=== PATIENT | female | born 1995 | race African-American/Black ===

== ENCOUNTER 2025-04-18 12:07 | Outpatient (REF) | payer MEDICAID, SELFPAY ==
--- NOTE | ~2025-04-18 | XR_ITS ---
EXAMINATION: XR HIP, RIGHT CLINICAL INFORMATION: Acute right hip pain COMPARISON: None available. TECHNIQUE: Two views of the right hip. FINDINGS: Right hip joint is congruent without narrowing. Lateral Center edge angle measures 41 degrees which is increased. No other abnormality is evident. XR/XR hip RT min 2V IMPRESSION: Coxa profunda. Electronically signed by: Dany Ortega MD 04/18/2025 12:40 PM EDT
[2025-04-18 16:12] LABS: MANUAL DIFF FLAG NO
[2025-04-18 16:24] LABS: Hematocrit 35.6 % (37.0-47.0); Hemoglobin 11.7 g/dl (12.0-16.0); Imm Gran Abs Auto 0.02 X10*3/uL (0.00-0.03); Imm Gran Pct Auto 0.3 % (0.0-0.4); Lymphocytes Absolute Auto 2.3 X10*3/uL (1.2-4.9); Mean Corpuscular HGB Conc 32.9 g/dl (31.0-35.0); Mean Corpuscular Hemoglobin 26.7 pg (27.0-33.0); Mean Corpuscular Volume 81.1 fL (80.0-98.0); NRBC Abs Auto 0.000 X10*3/uL (0.0-0.012); NRBC Pct Auto 0.0 /100WBC (0.0-0.2); Platelet Count 366 X10*3/uL (160-400); Red Blood Count 4.39 X10*6/uL (4.20-5.50); White Blood Count 8.0 X10*3/uL (4.8-10.8)
[2025-04-18 16:36] LABS: Anion Gap 10 (12-20); Blood Urea Nitrogen 15 mg/dL (9-16); Calcium 8.9 mg/dL (8.4-10.2); Carbon Dioxide 24 mmol/L (22-29); Chloride 108 mmol/L (96-108); Estimated Glomerular Filt Rate > 60; Potassium 4.2 mmol/L (3.3-5.1); Sodium 138 mmol/L (135-145)
[2025-04-24 11:49] LABS: Anti Nuclear Antibody Screen NEGATIVE (NEGATIVE)
== END 2025-04-18 12:08 | disposition home or self-care (01) ==
LOC: HO.HHCX 12:07
PROVIDERS: Visit Provider Internal Medicine
DX: Z01.84 Encounter for antibody response examination (principal); M25.551 Pain in right hip
CPT/HCPCS: 36415; 73502; 80048; 85025; 86038

== ENCOUNTER → 2025-04-18 12:10 | Outpatient (BNV) | payer MEDICAID, SELFPAY | PROVIDERS: Visit Provider Radiology Diagnostic Radiology | DX: M24.851 Other specific joint derangements of right hip, not elsewhere classified (principal) | CPT/HCPCS: 73502 ==

== ENCOUNTER 2025-04-18 13:03 | Outpatient (REF) | payer MEDICAID, SELFPAY | END 2025-04-18 13:04 | disposition home or self-care (01) | LOC: HO.HHCL 13:03 | PROVIDERS: Visit Provider Internal Medicine | DX: Z13.89 Encounter for screening for other disorder (principal) ==

== ENCOUNTER 2025-04-27 18:04 | Outpatient (REF) | payer MEDICAID, SELFPAY ==
--- OUTSIDE RECORDS SUMMARY | 2025-04-27 18:06 | XMS_ITS | Clinical Summary ---
Author Organization [email or web address] Address [address] [place] [address] [address] [address] Care Team Providers Care Tub Attendant Name Role Phone Unavailable Primary Care Provider Unavailabl e Allergies No known active allergies Medications ibuprofen 800 MG tabletIndications: Menstrual cramps Take 1 tab as needed for pain up to every 8 hours, take with food 90 tablet Active etonogestrel-eluti ng (Nexplanon) 68 mg contraceptive implant 1 each by Implant route 1 (one) time. 03/08/2025 Active Active Problems Problem Noted Date Diagnosed Date Femoroacetabular impingement of right hip 2024 Severe obesity (BMI >= 40) 04/18/2025 Menstrual cramps 02/27/2025 Encounters Date Type Department Care Team Description 04/27/2025 10:30 AM EDT Procedure Visit [facility] [address] [place] [phone] Montserrat Montoya CNM Cervical cancer screening (Primary Dx); Encntr screen for infections w sexl mode of transmiss; Checking subdermal contraceptive 04/27/2025 Travel 04/26/2025 Telephone [facility] [address], [place] [phone] Montserrat Montoya CNM chart prep 04/21/2025 Orders Only [facility] [address] [place], [place] [phone] Tracy Franco MD Anemia, unspecified type (Primary Dx) 04/20/2025 Telephone [facility] [address], [place] [phone] Tracy Franco MD 04/19/2025 Results Follow-Up [facility] [address] [place] [address] Tracy Franco MD CBC auto differential, Basic Metabolic Panel, XR Hip 2 or 3 Views Right, ROCK Screen,IFA, with Reflex to Titer and Pattern 04/18/2025 11:00 AM EDT Office Visit [facility] [address] [place] [phone] Tracy Franco MD Acute right hip pain (Primary Dx); Severe obesity (BMI >= 40) ([facility]); Femoroacetabular impingement of right hip 04/18/2025 Travel 04/12/[address] [address] Erich Wilson CNP Procedure (Pt requesting to speak apon Erich lynne did the procedure. ) 04/07/[address] [address] Montserrat Montoya, CAMILO Chart Prep 03/27/[address] [address] Holland Che MD 03/08/2025 9:00 AM EDT Procedure Visit [address] [address] Erich Wilson CNP Nexplanon insertion (Primary Dx) 03/08/2025 Travel 02/27/2025 1:20 PM EDT Office Visit [facility] [address] [address] Elysia Decker ANP Menstrual cramps (Primary Dx); Family planning; Elevated blood pressure reading without diagnosis of hypertension 02/27/2025 Telephone [facility] [address] [phone] Erich Wilson CNP APPT request 02/27/[address] [address] Holland Che MD from Last 3 Months Social History Tobacco Use Types Packs/Day Years Used Date Smoking Tobacco: Never Smokeless Tobacco: Never Tobacco Cessation:Counseling Given: Not Answered Depression Answer Date Recorded Patient Health Questionnaire-9 Score 7 03/08/2025 Patient Health Questionnaire-9 Score 7 03/08/2025 Last PHQ-9: Questionnaire Data Not on file 0 03/08/2025 Housing Stability Answer Date Recorded What is your housing situation today? I have ranjan child 03/09/[address] you li ve. Do you have problems with any of the following? None of the above 03/09/2025 Food Insecurity Answer Date Recorded Within the past 12 months, y ou worried that your food would run out before you got money to buy more: Never True 2024 Within the past 12 months,th e food you bought just didn't last and you didn't have enough money to get more: Sometimes True 03/09/2025 Transportation Answer Date Recorded In the past 12 months, has l ack of transportation kept you from medical appts, meetings, work or from getting things needed for daily living? No 03/09/2025 Utilities Answer Date Recorded In the past 12 months, has t he electric, gas, oil or water company threatened to shut off services in your home? Yes 03/09/2025 Depression Answer Date Recorded Patient Health Questionnaire-2 Score 3 03/08/2025 Internet Access Answer Date Recorded Internet Access Q1 Yes 03/09/2025 Internet Access Q2 Not on file 03/09/2025 Comments No Intention Date Recorded No desire to become (finding) 0 04/27/2025 Sex and Gender Information Value Date Recorded Sex Assigned at Female 02/01/2025 1:12 PM EDT Legal Sex Female 3:24 PM EDT Gender Identity Female 02/01/2025 1:12 PM EDT Sexual Orientation Straight 02/01/2025 1: 12 PM EDT Last Filed Vital Signs Vital Sign Reading Time Taken Comments Blood Pressure 114/69 04/27/2025 10:38 AM EDT Pulse 98 04/27/2025 10:38 AM EDT Temperature 36.8 C (98.3 F) 04/27/2025 10:38 AM EDT Respiratory Rate 12 04/27/2025 10:38 AM EDT Oxygen Saturation 99% 04/27/2025 10:38 AM EDT Inhaled Oxygen Concentration - - Weight 101 kg (222 lb 9.6 oz) 04/27/2025 10:38 A M EDT Height 157.5 cm (5' 2 ) 04/18/2025 11:04 AM EDT Body Mass Index 40.71 04/18/2025 11:04 AM EDT Plan of Treatment Health Maintenance Due Date Last Done Comments HIV Screening 1994 Lipid Panel 1994 Disability Screening 1994 HPV Vaccines (1 - 3-dose series) 2009 Hepatitis C Screening 2012 DTaP/Tdap/Td Vaccines (1 - Tdap) 2013 Hepatitis B Vaccines (1 of 3 - 19+ 3-dose series) 2013 Pap Smear 2015 COVID-19 Vaccine ( - 2023-2 5 season) 2024 Cervical Cancer Screening 2024 HPV/Cotest 2024 Influenza Vaccine (#1) 2025 Alcohol/Substance Use Screening 03/08/2026 03/08/2025 Depression Screening 03/08/2026 03/08/2025, 03/08/2025 SDOH Screening 03/08/2026 03/08/2025 Family Planning (PISQ) 04/27/2026 04/27/2025 Tobacco Screening 04/27/2026 04/27/2025 Zoster Vaccines (1 of 2) 2044 RSV Patients and Patients Aged 60 years or older (1 - 1-dose 75+ series) 2069 HIB Vaccines Aged Out No longer eligi ble based on patient's age to complete this topic Hepatitis A Vaccines Aged Out No long er eligible based on patient's age to complete this topic IPV Vaccines Aged Out No longer eligi ble based on patient's age to complete this topic Meningococcal B Vaccine Aged Out No l onger eligible based on patient's age to complete this topic Meningococcal Vaccine Aged Out No jessica serjio eligible based on patient's age to complete this topic Pneumococcal Vaccine: Pediatrics (0 to 5 Years) and At-Risk Patients (6 to 49) Years Aged Out No longer eligible b ased on patient's age to complete this topic RSV under 20 months Aged Out No longe r eligible based on patient's age to complete this topic Rotavirus Vaccines Aged Out No longer eligible based on patient's age to complete this topic Procedures Procedure Name Priority Date/Time Associated Diagnosis Comments BASIC METABOLIC PANEL Routine 04/18/2025 1:20 PM EDT Acute right hip pain CBC WITH AUTO DIFFERENTIAL Routine 04/18/2025 1:20 PM EDT Acute right hip pain ROCK SCREEN, IFA, W/REFL TITER AND PATTERN Routine 04/18/2025 1:20 PM EDT Acute right hip pain XR HIP 2 OR 3 VIEWS RIGHT Routine 04/18/2025 11:35 AM EDT Acute right hip pain UT INSERTION DRUG DELIVERY IMPLANT Routine 03/08/2025 9:30 AM EDT Nexplanon insertion POCT , URINE Routine 03/08/2025 9:24 AM EDT Nexplanon insertion from Last 3 Months Results * (ABNORMAL) CBC auto differential (04/18/2025 1:20 PM EDT) White Blood Count 8.0 4.8 - 10.8 X10*3/uL [facility] Red Blood Count 4.39 4.20 - 5.50 X10*6/uL [facility] Hemoglobin 11.7(L) 12.0 - 16.0 g/dl [facility] Hematocrit 35.6(L) 37.0 - 47.0 % [facility] Mean Corpuscular Volume 81.1 80.0 - 98.0 fL [facility] Mean Corpuscular Hemoglobin 26.7(L) 27.0 - 33.0 pg [facility] Mean Corpuscular HGB Conc 32.9 31.0 - 35.0 g/dl [facility] Red Cell Distribution Width 14.8 11.0 - 16.0 % [facility] Platelet Count 366 160 - 400 X10*3/uL [facility] Mean Platelet Volume 10.0 9.4 - 12.3 fL [facility] Neutrophils Percent Auto 56.5 45 - 73 % [facility] Imm Gran Pct Auto 0.3 0.0 - 0.4 % [facility] Lymphocytes Percent Auto 28.5 20 - 40 % [facility] Monocytes Percent Auto 12.5(H) 2 - 11 % [facility] Eosinophils Percent Auto 1.4 0 - 4 % [facility] Basophils Percent Auto 0.8 0 - 2 % [facility] NRBC Pct Auto 0.0 0.0 - 0.2 /100WBC [facility] Neutrophils Absolute Auto 4.5 2.0 - 8.3 x10*3/uL [facility] Imm Gran Abs Auto 0.02 0.00 - 0.03 X10*3/uL [facility] Lymphocytes Absolute Auto 2.3 1.2 - 4.9 X10*3/uL [facility] Monocytes Absolute Auto 1.0 0.1 - 1.2 X10*3/uL [facility] Eosinophils Absolute Auto 0.1 0.0 - 0.4 X10*3/uL [facility] Basophils Absolute Auto 0.1 0.0 - 0.2 X10*3/uL [facility] NRBC Abs Auto 0.000 0.0 - 0.012 X10*3/uL [facility] Blood Venous blood specimen / Unknown 04/18/2025 1:20 PM EDT 04/18/2025 4:08 PM EDT us Tracy Franco MD LAB BLOOD ORDERABLES Final Re sult [facility] [address] [place] [phone] [phone] * ROCK Screen,IFA, with Reflex to Titer and Pattern (04/18/2025 1:20 PM EDT) Anti Nuclear Antibody Screen NEGATIVE NEGATIVE [facility] Comment:ROCK IFA is a first l ine screen for detecting thepresence of up to approximately 150 autoantibodies invarious autoimmune diseases. A negative ROCK IFA resultsuggests an ROCK-associated autoimmune disease is notpresent at this time, but is not definitive. If thereis high clinical suspicion for Sjogren's syndrome,testing for anti-SS-A/Ro antibody should be considered.Anti-Siobhan-1 antibody should be considered for clinicallysuspected inflammatory myopathies.AC-0: NegativeInternational Consensus on ROCK Patterns(https://doi.org/10.1515/aacm-9924-3962)For additional information, please refer tohttp://education.HackerEarth/faq/XSZ733(This link is being provided for informational/educational purposes only.)THIS TEST WAS PERFORMED AT:[facility] [place] [phone] SU MD ROCK Titer TNP [facility] ROCK Pattern [facility] ROCK TITER 2 (REF LAB) [facility] ROCK Pattern 2 [facility] TITER 3 [facility] ROCK PATTERN 3 [facility] Blood Venous blood specimen / Unknown 04/18/2025 1:20 PM EDT 04/18/2025 4:08 PM EDT Tracy Franco MD LAB BLOOD ORDERABLES Final Re sult [facility] [address] [place] [phone] * (ABNORMAL) Basic Metabolic Panel (04/18/2025 1:20 PM EDT) Sodium 138 135 - 145 mmol/L [facility] Potassium 4.2 3.3 - 5.1 mmol/L [facility] Chloride 108 96 - 108 mmol/L [facility] Carbon Dioxide 24 22 - 29 mmol/L [facility] Anion Gap 10(L) 12 - 20 [facility] Urea Nitrogen (BUN) 15 9 - 16 mg/dL [facility] Creatinine, Serum 0.69 0.5 - 1.4 mg/dL [facility] Estimated Glomerular Filt Rate >60 [facility] Comment:Chronic Kidney Disea se: Estimated GFR < 60 mL/min/1.59g6Nxaudd Kidney Disease: Estimated GFR < 15 mL/min/1.73m2 Glucose 72 60 - 115 mg/dL [facility] Calcium 8.9 8.4 - 10.2 mg/dL [facility] Blood Venous blood specimen / Unknown 04/18/2025 1:20 PM EDT 04/18/2025 4:08 PM EDT Tracy Franco MD LAB BLOOD ORDERABLES Final Re sult [facility] [address] [place] [phone] [phone] * XR Hip 2 or 3 Views Right (04/18/2025 11:35 AM EDT) Anatomical Region Laterality Modality Lower Extremities, Hip Right Radiograp hic Imaging 04/18/2025 11:3 5 AM EDT Narrative 04/18/2025 12:42 PM EDT [facility] [address] [place] [address] XRay Report Signed Patient: Diaz Rivas MR#: [id number] : 1995 Acct:[id number] Age/Sex: 29 / F ADM Date: 04/18/25 Loc: HO.HHCX Attending Dr: rTacy Franco MD Ordering Physician: Tracy Franco MD Date of Service: 04/18/25 Procedure(s): XR hip RT min 2V Accession Number(s): [id number] cc: Tracy Franco MD EXAMINATION: XR HIP, RIGHT CLINICAL INFORMATION: Acute right hip pain COMPARISON: None available. TECHNIQUE: Two views of the right hip. FINDINGS: Right hip joint is congruent without narrowing. Lateral Center edge angle measures 41 degrees which is increased. No other abnormality is evident. XR/XR hip RT min 2V IMPRESSION: Coxa profunda. Electronically signed by: Dany Ortega MD 04/18/2025 12:40 PM EDT RP Dictated By: Dany Ortega MD Signed By: <Electronically signed by Dany Ortega MD in OV> 04/18/25 1240 DD/ 1135 TD/TT: 04/18/25 1200 Administrative Office Specialist: Procedure Note Donotlawsoninterpreter, Image - 04/18/[address] [address] XRay Report Signed Patient: Diaz RivasR#: [id number] : 1995Acct:[id number] Age/Sex: 29 / FADM Date: 04/18/25 Loc: HO.HHCX Attending Dr: Tracy Franco MD Ordering Physician: Tracy Franco MD Date of Service: 04/18/25 Procedure(s): XR hip RT min 2V Accession Number(s): [id number] cc: Tracy Franco MD EXAMINATION: XR HIP, RIGHT CLINICAL INFORMATION: Acute right hip pain COMPARISON: None available. TECHNIQUE: Two views of the right hip. FINDINGS: Right hip joint is congruent without narrowing. Lateral Center edge angle measures 41 degrees which is increased. No other abnormality is evident. XR/XR hip RT min 2V IMPRESSION: Coxa profunda. Electronically signed by: Dany Ortega MD 04/18/2025 12:40 PM EDT RP Dictated By: Dany Ortega MD Signed By: <Electronically signed by Dany Ortega MD in OV> 04/18/25 1240 DD/ 1135 TD/TT: 04/18/25 1200 Administrative Office Specialist: Tracy Franco MD IMG XR PROCEDURES Final Resul t * UT INSERTION DRUG DELIVERY IMPLANT (03/08/2025 9:30 AM EDT) Erich Pantoja CNP - 03/08/2025 9:30 AM EDT Erich Wilson CNP 03/08/2025 1:35 PM Insertion/Removal of Contraceptive Capsule Date/Time: 03/08/2025 9:30 AM Performed by: Erich Wilson CNP Authorized by: Erich Wilson CNP Confirmed correct patient, procedure, site, and patient consented: Yes Participating Staff: Erich wilson Participating Staff: Montserrat Montoya Consent: Consent obtained: Verbal and written Consent given by: Patient Procedural risks and benefits discussed: Yes Patient questions answered: yes Patient agrees, verbalizes understanding, and wants to proceed: yes Educational handouts given: yes Instructions and paperwork completed: yes Indication: Indication: insertion of non-biodegradable drug delivery implant Pre-procedure: Pre-procedure timeout performed: yes Prepped with: povidone-iodine Local anesthetic: Lidocaine 1% The site was cleaned and prepped in a sterile fashion: yes Procedure: Procedure: Insertion Left/right: Left Preloaded contraceptive capsule trocar was placed subdermally: yes Visualization of implant was obtained: yes Contraceptive capsule was inserted and trocar removed: yes Visualization of notch in stylet and palpation of device: yes Palpation confirms placement by provider and patient: yes Site was closed with steri-strips and pressure bandage applied: yes OSM: 1 each Etonogestrel (Nexplanon) Implant 68mg Erich Wilson THERAPY ASSISTANT IN CLINIC/BEDSIDE ORDERAB LES Final Result * POCT Urine (03/08/2025 9:24 AM EDT) Preg Test, Ur Negative Negative, Indeterminate, None Detected, Invalid, Specimen unsatisfactory for evaluation, Weakly Positive, 2+ QC Media Lot # [id number] Lot# Expiration Date [id number] Urine 03/08/2025 9:24 AM EDT Erich Wilson CNP POINT OF CARE TEST ENTER/ EDIT ORDERABLES Final Result from Last 3 Months [facility]
[2025-05-01 23:03] LABS: C. trachomatis RNA TMA NOT DETECTED (NOT DETECTED); N. gonorrhoeae RNA TMA NOT DETECTED (NOT DETECTED); Trichomonas (NAAT) NOT DETECTED (NOT DETECTED)
== END 2025-04-27 18:05 | disposition home or self-care (01) ==
LOC: HO.HHCLNP 18:04
PROVIDERS: Visit Provider Advanced Practice Midwife
DX: Z12.4 Encounter for screening for malignant neoplasm of cervix (principal); Z11.8 Encounter for screening for other infectious and parasitic diseases; Z11.51 Encounter for screening for human papillomavirus (HPV); Z11.3 Encounter for screening for infections with a predominantly sexual mode of transmission
CPT/HCPCS: 87491; 87591; 87626; 87661; 88175

== ENCOUNTER 2025-04-28 13:41 | Outpatient (REF) | payer MEDICAID, SELFPAY ==
--- OUTSIDE RECORDS SUMMARY | 2025-04-28 13:45 | XMS_ITS | Clinical Summary ---
Author Organization [employer] [facility] Address [address] [place] [address] [address] [address] Care Team Providers Care Netezza Architect Name Role Phone Unavailable Primary Care Provider [...] Description 04/27/2025 10:30 AM EDT Procedure Visit [facility] [address] [place] [address] Montserrat Montoya CNM Cervical cancer screening (Primary Dx); Encntr screen for infections w sexl mode of transmiss; Checking subdermal contraceptive 04/27/2025 Travel 04/26/2025 Telephone [facility] [address] [place] [address] Montserrat Montoya CNM chart prep 04/21/2025 Orders Only [facility] [address] [place], [place] [phone] Tracy Franco MD Anemia, unspecified type (Primary Dx) 04/20/2025 Telephone [facility] [address] [place], [place] [phone] Tracy Franco MD 04/19/2025 Results Follow-Up [facility] [address] [place] [address] Tracy Franco MD CBC auto differential, Basic Metabolic Panel, XR Hip 2 or 3 Views Right, ROCK Screen,IFA, with Reflex to Titer and Pattern 04/18/2025 11:00 AM EDT Office Visit [facility] [address] [place] [phone] Tracy Franco MD Acute right hip pain (Primary Dx); Severe obesity (BMI >= 40) ([facility]); Femoroacetabular impingement of right hip 04/18/2025 Travel 04/12/[address] [address] Erich Wilson CNP Procedure (Pt requesting to speak apon Erich lynne did the procedure. ) 04/07/[address] [address] Montserrat Montoya, CAMILO Chart Prep 03/27/[address] [address] Holland Che MD 03/08/2025 9:00 AM EDT Procedure Visit [address] [address] Erich Wilson CNP Nexplanon insertion (Primary Dx) 03/08/2025 Travel 02/27/2025 1:20 PM EDT Office Visit [facility] [address] [address] Elysia Decker ANP Menstrual cramps (Primary Dx); Family planning; Elevated blood pressure reading without diagnosis of hypertension 02/27/2025 Telephone [facility] [address] [phone] Erich Wilson CNP APPT request 02/27/[address] [address] Holland Che MD from Last 3 Months [...] 11:35 AM EDT Acute right hip pain OK INSERTION DRUG DELIVERY IMPLANT Routine 03/08/2025 9:30 AM EDT Nexplanon insertion POCT , URINE Routine 03/08/2025 9:24 AM EDT Nexplanon insertion from Last 3 Months Results * (ABNORMAL) CBC auto differential (04/18/2025 1:20 PM EDT) White Blood Count 8.0 4.8 - 10.8 X10*3/uL [facility] Red Blood Count 4.39 4.20 - 5.50 X10*6/uL [facility] Hemoglobin 11.7(L) 12.0 - 16.0 g/dl [facility] Hematocrit 35.6(L) 37.0 - 47.0 % [facility] Mean Corpuscular Volume 81.1 80.0 - 98.0 fL [facility] Mean Corpuscular Hemoglobin 26.7(L) 27.0 - 33.0 pg [facility] Mean Corpuscular HGB Conc 32.9 31.0 - 35.0 g/dl [facility] Red Cell Distribution Width 14.8 11.0 - 16.0 % [facility] Platelet Count 366 160 - 400 X10*3/uL [facility] Mean Platelet Volume 10.0 9.4 - 12.3 fL [facility] Neutrophils Percent Auto 56.5 45 - 73 % [facility] Imm Gran Pct Auto 0.3 0.0 - 0.4 % [facility] Lymphocytes Percent Auto 28.5 20 - 40 % [facility] Monocytes Percent Auto 12.5(H) 2 - 11 % [facility] Eosinophils Percent Auto 1.4 0 - 4 % [facility] Basophils Percent Auto 0.8 0 - 2 % [facility] NRBC Pct Auto 0.0 0.0 - 0.2 /100WBC [facility] Neutrophils Absolute Auto 4.5 2.0 - 8.3 x10*3/uL [facility] Imm Gran Abs Auto 0.02 0.00 - 0.03 X10*3/uL [facility] Lymphocytes Absolute Auto 2.3 1.2 - 4.9 X10*3/uL [facility] Monocytes Absolute Auto 1.0 0.1 - 1.2 X10*3/uL [facility] Eosinophils Absolute Auto 0.1 0.0 - 0.4 X10*3/uL [facility] Basophils Absolute Auto 0.1 0.0 - 0.2 X10*3/uL [facility] NRBC Abs Auto 0.000 0.0 - 0.012 X10*3/uL [facility] Blood Venous blood specimen / Unknown 04/18/2025 1:20 PM EDT 04/18/2025 4:08 PM EDT us Tracy Franco MD LAB BLOOD ORDERABLES Final Re sult [facility] [address] [place] [address] [phone] * ROCK Screen,IFA, with Reflex to Titer and Pattern (04/18/2025 1:20 PM EDT) Anti Nuclear Antibody Screen NEGATIVE NEGATIVE [facility] Comment:ROCK IFA is a first l [...] clinicallysuspected inflammatory myopathies.AC-0: NegativeInternational Consensus on ROCK Patterns(https://doi.org/10.1515/uvwa-8531-5087)For additional information, please refer [email or web address].VidAngel/faq/FYC389(This link is being provided for informational/educational purposes only.)THIS TEST WAS PERFORMED AT:[facility] [place] [id number] SU MD ROCK Titer TNP [facility] ROCK Pattern [facility] ROCK TITER 2 (REF LAB) [facility] ROCK Pattern 2 [facility] ROCK TITER 3 [facility] ROCK PATTERN 3 [facility] Blood Venous blood specimen / Unknown 04/18/2025 1:20 PM EDT 04/18/2025 4:08 PM EDT Tracy Franco MD LAB BLOOD ORDERABLES Final Re sult [facility] [address] [place] [phone] [phone] * (ABNORMAL) Basic Metabolic Panel (04/18/2025 1:20 PM EDT) Sodium 138 135 - 145 mmol/L [facility] Potassium 4.2 3.3 - 5.1 mmol/L [facility] Chloride 108 96 - 108 mmol/L [facility] Carbon Dioxide 24 22 - 29 mmol/L [facility] Anion Gap 10(L) 12 - 20 [facility] Urea Nitrogen (BUN) 15 9 - 16 mg/dL [facility] Creatinine, Serum 0.69 0.5 - 1.4 mg/dL [facility] Estimated Glomerular Filt Rate >60 [facility] Comment:Chronic Kidney Disea se: Estimated GFR < 60 mL/min/1.46p2Iqiqlk Kidney Disease: Estimated GFR < 15 mL/min/1.73m2 Glucose 72 60 - 115 mg/dL [facility] Calcium 8.9 8.4 - 10.2 mg/dL [facility] Blood Venous blood specimen / Unknown 04/18/2025 1:20 PM EDT 04/18/2025 4:08 PM EDT Tracy Franco MD LAB BLOOD ORDERABLES Final Re sult [facility] [address] [place] [phone] [phone] * XR Hip 2 or 3 Views Right (04/18/2025 11:35 AM EDT) Anatomical Region Laterality Modality Lower Extremities, Hip Right Radiograp hic Imaging 04/18/2025 11:3 5 AM EDT Narrative 04/18/2025 12:42 PM EDT [facility] [address] [place] [address] XRay Report Signed Patient: Diaz Rivas MR#: [id number] : 1995 Acct:[id number] Age/Sex: 29 / F ADM Date: 04/18/25 Loc: HO.HHCX Attending Dr: Tracy Franco MD Ordering Physician: Tracy Franco MD Date of Service: 04/18/25 Procedure(s): XR hip RT min 2V Accession Number(s): [id number] cc: Trayc Franco MD EXAMINATION: XR HIP, RIGHT CLINICAL [...] 04/18/25 1240 DD/ 1135 TD/TT: 04/18/25 1200 Warehouser: Procedure Note Donotlawsoninterpreter, Image - 04/18/[address] [address] XRay Report Signed Patient: Diaz RivasR#: [id number] : 1995Acct:[id number] Age/Sex: 29 / FADM Date: 04/18/25 Loc: HO.HHCX Attending Dr: Tracy Franco MD Ordering Physician: Tracy Franco MD Date of Service: 04/18/25 Procedure(s): XR hip RT min 2V Accession Number(s): [id number] cc: Tracy Franco MD EXAMINATION: XR HIP, [...] 04/18/25 1240 DD/ 1135 TD/TT: 04/18/25 1200 Warehouser: Tracy Franco MD IMG XR PROCEDURES Final Resul t * OK INSERTION DRUG DELIVERY IMPLANT (03/08/2025 9:30 AM [...] each Etonogestrel (Nexplanon) Implant 68mg Erich Wilson FINANCIAL HEALTH COUNSELOR IN CLINIC/BEDSIDE ORDERAB LES Final Result * POCT Urine (03/08/2025 9:24 AM EDT) Preg Test, Ur Negative Negative, Indeterminate, None Detected, Invalid, Specimen unsatisfactory for evaluation, Weakly Positive, 2+ QC Media Lot # [id number] Lot# Expiration Date [id number] Urine 03/08/2025 9:24 AM EDT Erich Wilson CNP POINT OF CARE TEST ENTER/ EDIT ORDERABLES Final Result from Last 3 Months [facility]
[2025-04-28 16:58] LABS: Alanine Aminotransferase 56 U/L (0-31); Albumin Level 4.6 g/dL (3.5-5.0); Alkaline Phosphatase 112 U/L (39-117); Aspartate Amino Transferase 36 U/L (5-31); Iron 36 mcg/dL (30-160); Percent Iron Saturation 15 % (15-50); Total Iron Binding Capacity 239 mcg/dL (228-428); Total Protein 8.0 g/dL (6.5-8.0); Unsaturated Iron Binding 203 ug/dL
[2025-04-28 17:11] LABS: Ferritin 361 ng/mL (10-122)
[2025-04-29 03:16] LABS: Syphilis Screen Nonreactive (Nonreactive)
[2025-04-29 03:29] LABS: HBS Num1 0.51 mIU/mL (0-7.99); HBc Num1 0.18 S/CO (0.00-0.79); HBsAGNum1 0.27 S/CO (0.00-0.99); HIV Num 1 0.05 S/CO (0.00-0.99); Hepatitis B Surface Antigen Negative (Negative); ~HepC Num1 0.18 S/CO (0.00-0.79); ~Hepatitis B Surface Antibody NONREACTIVE (Nonreactive); ~Hepatitis C Antibody Nonreactive (Nonreactive)
== END 2025-04-28 13:42 | disposition home or self-care (01) ==
LOC: HO.HHCL 13:41
PROVIDERS: Internal Medicine; Visit Provider Advanced Practice Midwife
DX: Z11.4 Encounter for screening for human immunodeficiency virus [HIV] (principal); Z11.59 Encounter for screening for other viral diseases; Z11.3 Encounter for screening for infections with a predominantly sexual mode of transmission; D64.9 Anemia, unspecified
CPT/HCPCS: 36415; 80076; 82728; 83540; 86704; 86706; 86780; 86803; 87340; 87389

== ENCOUNTER 2025-06-30 08:43 | Outpatient (REF) | payer MEDICAID, SELFPAY ==
--- OUTSIDE RECORDS SUMMARY | 2025-06-28 09:15 | XMS_ITS | Encounter Summary ---
Author Organization [employer] Address [address] [facility] [address], [place] [address] Care Team Providers Care Telephone Sex Worker Name Role Phone Esther Adam MD Primary Care Pro vider Reason for Referral * Consultation (Routine) - Authorized Specialty Diagnoses / Procedures Referred By Veda little Referred To Contact Obstetrics and Gynecology Diagnoses Atypical squamous cells of undetermined significance on cytologic smear of cervix (ASC-US) Esther Adam MD [address] [place] [phone] Phone: tel: fax: [facility] Referral ID Status Reason Start Date Expiration Date Visits Requested Visits Authorized [id number] Authorized Specialty Services Required 06/28/2025 06/28/2026 1 1 Encounter Details Date Type Department Care Team (Late st Contact Info) Description 06/28/2025 9:15 AM EDT Office Visit [facility] [address] [place] [phone] Esther Adam MD [address] [place], [place] [phone] ASCUS with positive high risk HPV cervical (Primary Dx); Atypical squamous cells of undetermined significance on cytologic smear of cervix (ASC-US); Dietary counseling; Exercise counseling; Annual physical exam; Encounter for vaccination; Encounter for immunization; Health care maintenance Social History Tobacco Use Types Packs/Day Years Used Date Smoking Tobacco: Never Passive Smoke Exposure: Never Smokeless Tobacco: Never Tobacco Cessation:Counseling Given: Not Answered Alcohol Use Standard Drinks/Week Comments Yes 0 (1 standard drink = 0.6 oz pur e alcohol) social Depression Answer Date Recorded Patient Health Questionnaire-9 Score 12 06/29/2025 Patient Health Questionnaire-9 Score 12 06/29/2025 Last PHQ-9: Questionnaire Data Not on file 1 Housing Stability Answer Date Recorded What is [...] got money to buy more: Never True 06/21/2025 Within the past 12 months,th e food you bought just didn't last and you didn't have enough money to get more: Never True Transportation Answer Date Recorded In the past 12 months, has l ack of transportation kept you from medical appts, meetings, work or from getting things needed for daily living? No 03/09/2025 Utilities Answer Date Recorded In the past 12 months, has t he electric, gas, oil or water company threatened to shut off services in your home? No 06/21/2025 Depression Answer Date Recorded Patient Health Questionnaire-2 Score 4 06/29/2025 Internet Access Answer Date Recorded Internet Access Q1 Yes 03/09/2025 Internet Access Q2 Not on file 03/09/2025 Comments No Sex and Gender Information Value Date Recorded Sex Assigned at Female 02/01/2025 1:12 PM EDT Legal Sex Female 3:24 PM EDT Gender Identity Female 02/01/2025 1:12 PM EDT Sexual Orientation Straight 02/01/2025 1: 12 PM EDT documented as of this encounter Last Filed Vital Signs Vital Sign Reading Time Taken Comments Blood Pressure 100/66 06/28/2025 9:27 AM EDT Pulse 76 06/28/2025 9:27 AM EDT Temperature 36.7 C (98 F) 06/28/2025 9:27 AM EDT Respiratory Rate 20 06/28/2025 9:27 AM EDT Oxygen Saturation - - Inhaled Oxygen Concentration - - Weight 101 kg (223 lb) 06/28/2025 9:27 AM EDT Height 157.5 cm (5' 2 ) 06/28/2025 9:27 AM EDT Body Mass Index 40.79 06/28/2025 9:27 AM EDT documented in this encounter Functional Status * Over the past 2 weeks, how often have you been bothered by any of the following problems? Question Answer Date of Assessment Author Patient Health Questionnaire -2 Score 4 06/29/2025 8:18 AM EDT Venita Adhikari MA * Little interest or pleasure in doing things Answer Date of Assessment Author More than half the days 06/29/2025 8:18 AM EDT Venita Platt MA * Feeling down, depressed, or hopeless Answer Date of Assessment Author More than half the days 06/29/2025 8:18 AM EDT Venita Platt MA * Trouble falling or staying asleep, or sleeping too much Answer Date of Assessment Author Not at all 06/29/2025 8:18 AM EDT Candice Adhikari MA * Feeling tired or having little energy Answer Date of Assessment Author Several days 06/29/2025 8:18 AM EDT Candice Adhikari MA * Poor appetite or overeating Answer Date of Assessment Author Not at all 06/29/2025 8:18 AM VICTORIAT Candice Adhikari MA * Feeling bad about yourself - or that you are a failure or have let yourself or your family down Answer Date of Assessment Author Several days 06/29/2025 8:18 AM Candice Miner MA * Trouble concentrating on things, such as reading the newspaper or watching television Answer Date of Assessment Author Nearly every day 06/29/2025 8:18 AM VICTORIAT Venita Adhikari MA * Moving or speaking so slowly that other people could have noticed? Or the opposite - being so fidgety or restless that you have been moving around a lot more than usual. Answer Date of Assessment Author Nearly every day 06/29/2025 8:18 AM Venita Miner MA * Thoughts that you would be better off or hurting yourself in some way Answer Date of Assessment Author Not at all 06/29/2025 8:18 AM Candice Miner MA * Patient Health Questionnaire-9 Score Answer Date of Assessment Author 12 06/29/2025 8:18 AM Candice Miner MA * How difficult have these problems made it for you to do your work, take care of things at home, or get along with other people? Answer Date of Assessment Author Very difficult 06/29/2025 8:18 AM EDT Candice Adhikari MA * Over the last 2 weeks, how often have you been bothered by any of the following problems? Question Answer Date of Assessment Author Feeling nervous, anxious, or on edge 2 06/29/2025 8:19 AM EDT Venita Adhikari MA Not being able to stop or co ntrol worrying 1 06/29/2025 8:19 AM VICTORIAT Venita Adhikari MA Worrying too much about diff erent things 2 06/29/2025 8:19 AM EDT Venita Adhikari MA Trouble relaxing 0 06/29/2025 8:19 AM EDT Venita Platt MA Being so restless that it is hard to sit still 0 06/29/2025 8:19 AM Venita Miner MA Becoming easily annoyed or irritable 0 06/29/2025 8:19 AM VICTORIAT Venita Adhikari MA Feeling afraid as if somethi ng awful might happen 1 06/29/2025 8:19 AM Venita Miner MA MADISON-7 Total Score 6 06/29/2025 8:19 AM Venita Miner MA documented as of this encounter Progress Notes * Esther Muñoz MD - 06/28/2025 9:15 AM EDT Subjective Patient ID: Diaz Rivas is a 30 y.o. 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 Also was not able to schedule at [facility] unsure reason -seems waiting time? ----- -LMP: 03/2025 -on nexplanon ----- Assessment and Plan: Health care maintenance -Annual exam done 05/2025 -Contraception : nexplanon since 02/2025 to remove in 2029 -cervical pap smear 03/2025 ASCUS/HPV Positive ---Pt missed apt w CASTING HOUSE WORKER at [facility] on 06/26/25 ,Pt stated she called to reschedule given missed apt but could not communicate w manager front office staff because of language . I called office today to help pt getting apt but I was explained that given pt missed apt she can not be seen there -referred today to another CASTING HOUSE WORKER -requested to refer sp to look into [facility] and request Women health tracking to f up -Vaccine s/p COVID 19 x3. COVID 19, Flu vaccine today here , will offer Tdap next apt ,hep B not immune-start series today w [facility] -2nd dose in 1 mo ---- -05/22/25 AST 36, ALT 56,ferritin elevated 361,iron panel wnl -will do missing annual labs in fasting ,anemia labs and repeat chem ,MMRV titers,and T-spot Obesity BMI 40 -Advised pt to improve diet and exercise,discussed healthy life style -apt w hydraulics teacher 06/30/25 -pt states may need to reschedule -will monitor at next apt and if pt not able to lose weight will discuss medical options as tab vs inj options Depression/anxiety PHQ9 12, MADISON 6 ,no SI ,no joann no hallucinations -saw 06/01/25 ( Kami Sultana) [facility], and Patient to reach out to [facility] as needed -to talk w today -agreed w outpt treatment referral to be done today Right hip pain-resolved -XR hip RT 03/2025 Right hip joint is congruent without narrowing. Lateral Center edge angle measures 41 degrees which is increased. No other abnormality is evident. Coxa profunda. Pt currently reports to be asymptomatic -referred to ortho for hip pain before, pt not schedule apt --advised to schedule apt only if significant ongoing pain occurs again otherwise if only on and off mild pain can offer PT at next apt Given currently asymptomatic there is no need for any intervention at this time ,Weight loss advised Review of Systems Constitutional: Negative. Negative for chills, fatigue and fever. HENT: Negative. Eyes: Negative. Respiratory: Negative. Cardiovascular: Negative. Gastrointestinal: Negative. Genitourinary: Negative. Musculoskeletal: Negative. Neurological: Negative. Hematological: Negative. Psychiatric/Behavioral: Positive for behavioral problems. Negative for suicidal ideas. Objective BP 100/66 (BP Location: Left arm, Patient Position: Sitting, BP Cuff Size: Large adult) Pulse 76 Temp 98 ??F (36.7 ??C) (Temporal) Resp 20 Ht 5' 2 (1.575 m) Wt 223 lb (101 kg) BMI 40.79 kg/m?? Physical Exam Vitals reviewed. Constitutional: Appearance: Normal appearance. She is obese. HENT: Head: Normocephalic and atraumatic. Right Ear: Tympanic membrane and ear canal normal. Left Ear: Tympanic membrane and ear canal normal. Mouth/Throat: Mouth: Mucous membranes are moist. Pharynx: Oropharynx is clear. Eyes: Extraocular Movements: Extraocular movements intact. Pupils: Pupils are equal, round, and reactive to light. Cardiovascular: Rate and Rhythm: Normal rate and regular rhythm. Heart sounds: Normal heart sounds. No murmur heard. Pulmonary: Effort: Pulmonary effort is normal. Breath sounds: Normal breath sounds. Abdominal: General: Abdomen is flat. Bowel sounds are normal. Palpations: Abdomen is soft. Musculoskeletal: General: Normal range of motion. Cervical back: Normal range of motion and neck supple. Skin: General: Skin is warm. Neurological: General: No focal deficit present. Mental Status: She is alert and oriented to person, place, and time. Mental status is at baseline. Psychiatric: Mood and Affect: Mood normal. Behavior: Behavior normal. Assessment/Plan Problem List Items Addressed This Visit Health care maintenance Other Visit Diagnoses ASCUS with positive high risk HPV cervical - Primary Atypical squamous cells of undetermined significance on cytologic smear of cervix (ASC-US) Relevant Orders Referral to Obstetrics / Gynecology Dietary counseling Exercise counseling Annual physical exam Relevant Orders CBC auto differential Iron And Total Iron Binding Capacity Ferritin Vitamin B12 (Cobalamin) and Folate Panel, Serum Chlamydia/Trichomonas/Neisseria gonorrhoeae, PCR, Urine Comprehensive Metabolic Panel Hemoglobin A1c Lipid Panel, Standard TSH with Reflex to Free T4 Vitamin D, 25-Hydroxy, Total, Immunoassay T-SPOT??.TB Measles, Mumps, and Rubella (MMR) Antibodies (IgG) Panel, Immune Status Varicella Zoster Antibody, IgG Encounter for vaccination Relevant Orders COVID-19 VACCINE [id number] (Comirnaty) 12 yrs + (Completed) Encounter for immunization Relevant Orders FLU VACCINE TRIVALENT [id number] (Fluarix) 19 yrs + (Completed) HEPLISAV-B VACCINE ADULT 19 yrs + (Completed) documented in this encounter Plan of Treatment Upcoming Encounters Date Type Department Care Team (Late st Contact Info) Description 07/31/2025 9:30 AM EST Immunization [facility] [address] [place] [phone] Scheduled Orders Name Type Priority Associated Diagnoses Orde r Schedule CBC auto differential Lab Routine Annual physical exam Expected: 06/28/2025 (Approximate), Expires: 06/28/2026 Iron And Total Iron Binding Capacity Lab Routine Annual physical exam Expected: 06/28/2025 (Approximate), Expires: 06/28/2026 Ferritin Lab Routine Annual physical exam Expected: 06/28/2025 (Approximate), Expires: 06/28/2026 Vitamin B12 (Cobalamin) and Folate Panel, Serum Lab Routine Annual physical exam Expected: 06/28/2025 (Approximate), Expires: 06/28/2026 Chlamydia/Trichomonas/Neiss eria gonorrhoeae, PCR, Urine Lab Routine Annual physical exam Ordered: 06/28/2025 Comprehensive Metabolic Panel Lab Routine Annual physical exam Expected: 06/28/2025 (Approximate), Expires: 06/28/2026 Hemoglobin A1c Lab Routine Annual physical exam Expected: 06/28/2025 (Approximate), Expires: 06/28/2026 Lipid Panel, Standard Lab Routine Annual physical exam Expected: 06/28/2025 (Approximate), Expires: 06/28/2026 TSH with Reflex to Free T4 Lab Routine Annual physical exam Expected: 06/28/2025 (Approximate), Expires: 06/28/2026 Vitamin D, 25-Hydroxy, Total, Immunoassay Lab Routine Annual physical exam Expected: 06/28/2025 (Approximate), Expires: 06/28/2026 T-SPOT .TB Lab Routine Annual physical exam Expected: 06/28/2025 (Approximate), Expires: 06/28/2026 Measles, Mumps, and Rubella (MMR) Antibodies (IgG) Panel, Immune Status Lab Routine Annual physical exam Expected: 06/28/2025 (Approximate), Expires: 06/28/2026 Varicella Zoster Antibody, IgG Lab Routine Annual physical exam Expected: 06/28/2025 (Approximate), Expires: 06/28/2026 Scheduled Referrals Name Type Priority Associated Diagnoses Orde r Schedule Referral to Obstetrics / Gynecology Outpatient Referral Routine Atypical squamous cells of undetermined significance on cytologic smear of cervix (ASC-US) Expected: 06/28/2025 (Approximate), Expires: 06/28/2026 documented as of this encounter Visit Diagnoses Diagnosis ASCUS with positive high risk HPV cervical- Primary Atypical squamous cells of undetermined significance on cytologic smear of cervix (ASC-US) Dietary counseling Dietary surveillance and counseling Exercise counseling Annual physical exam Routine general medical examination at a health care facility Encounter for vaccination Encounter for immunization Health care maintenance documented in this encounter Additional Health Concerns Assessment Noted Time PHQ-9 Depression Total Score: 12 025 8:18 AM EDT documented as of this encounter Care Teams Telephone Sex Worker Relationship Specialty Start Date End Date Esther Adam MD [address] [place] [phone] PCP - General Internal Medicine 06/28/25 documented as of this encounter
--- OUTSIDE RECORDS SUMMARY | 2025-06-30 09:06 | XMS_ITS | Encounter Summary ---
Author Organization [employer] Address [address] [place] [address] Care Team Providers Care Data Entry Assistant Name Role Phone Unavailable Primary Care Provider Unavailabl e Reason for Visit * Reason Onset Date Comments chart prep 06/27/2025 Encounter Details Date Type Department Care Team ([facility] st Contact Info) Description 06/27/2025 Telephone [facility] [address] [place] [address] Esther Adam MD [address] [place] [address] chart prep Social History Tobacco Use Types Packs/Day Years Used Date Smoking Tobacco: Never Passive Smoke Exposure: Never Smokeless Tobacco: Never Depression Answer Date Recorded Patient Health Questionnaire-9 Score 12 06/28/2025 Patient Health Questionnaire-9 Score 12 06/28/2025 Last PHQ-9: Questionnaire Data Not on file [...] Date Recorded Patient Health Questionnaire-2 Score 4 06/28/2025 Internet Access Answer Date Recorded Internet Access Q1 Yes 03/09/2025 Internet Access Q2 Not on file 03/09/2025 Comments No Sex and Gender Information Value Date Recorded Sex Assigned at Female 02/01/2025 1:12 PM EDT Legal Sex Female 3:24 PM EDT Gender Identity Female 02/01/2025 1:12 PM EDT Sexual Orientation Straight 02/01/2025 1: 12 PM EDT documented as of this encounter Miscellaneous Notes * Telephone Encounter - Gary Barnhart MA - 06/27/2025 4:03 PM EDT Chart Prep Labs: done Images: done Referrals: Had appointment 06/26/25 Vaccines due: Covid, Flu, Tdap, Hep B, and HPV Screenings: colonoscopy Overdue care gaps: Not applicable documented in this encounter Plan of Treatment Upcoming Encounters Date Type Department Care Team (Late st Contact Info) Description 07/31/2025 9:30 AM EST Immunization [facility] [address] [place] [address] documented as of this encounter Visit Diagnoses Not on filedocumented in this encounter Additional Health Concerns Assessment Noted Time PHQ-9 Depression Total Score: 12 025 9:26 AM EDT documented as of this encounter
--- OUTSIDE RECORDS SUMMARY | 2025-06-30 09:06 | XMS_ITS | Encounter Summary ---
Author Organization [employer] Address [address] [place] [address] Care Team Providers Care Lpn Per Diem Name Role Phone Esther Adam MD Primary Care Pro vider Encounter Details Date Type Department Care Team (Latest Contact Info) Description 06/30/2025 Travel Social History Tobacco Use Types Packs/Day Years Used Date Smoking Tobacco: Never Passive Smoke Exposure: Never Smokeless Tobacco: Never Alcohol Use Standard Drinks/Week Comments Yes 0 [...] PM EDT documented as of this encounter Plan of Treatment Upcoming Encounters Date Type Department Care Team (Late st Contact Info) Description 07/31/2025 9:30 AM EST Immunization [facility] [address] [place] [address] documented as of this encounter Visit Diagnoses Not on filedocumented in this encounter Additional Health Concerns Assessment Noted Time PHQ-9 Depression Total Score: 12 025 8:18 AM EDT documented as of this encounter Care Teams Lpn Per Diem Relationship Specialty Start Date End Date Esther Adam MD [address] [place] [id number] PCP - General Internal Medicine 06/28/25 documented as of this encounter
--- OUTSIDE RECORDS SUMMARY | 2025-06-30 09:06 | XMS_ITS | Clinical Summary ---
Author Organization [employer] Address [address] [facility] [place] [address] Care Team Providers Care Chief Of Safety And Protection Name Role Phone Esther Adam MD Primary Care Pro vider Allergies No known active allergies Medications * This document contains information received from the source organization and may not represent a complete record from that organization. etonogestrel-elut ing (Nexplanon) 68 mg contraceptive implant 1 each by Implant route 1 (one) time. 03/08/2025 Active ibuprofen 800 MG tabletIndications :Menstrual cramps Take 1 tab as needed for pain up to every 8 hours, take with food 90 tablet 06/28/20 Discontinu ed(Other) Active Problems Problem Noted Date Diagnosed Date Health care maintenance 06/28/2025 Moderate depressive disorder 06/28/2025 Adjustment disorder with mixed anxiety and depre ssed mood 05/18/2025 Assessment & Plan (05/22/2025 9:20 AM EDT): During IBH Consult Diaz presenting with depressed mood, hopelessness, irritable mood, isolating, change in appetite or weight unintentional weight gain, worthlessness, inappropriate/excessive guilt , difficulty concentrating and difficulty controlling worry and anxiety/worry associated to easily fatigued , difficulty concentrating and/or mind going blank , and irritability; for a period of 0-6 mo, for most or all symptoms in the context of family issues, marriage, and recent move. Pt is going through different stressors (personal and cultural). Pt and her family moved from [facility]. The lack of family/social support is identified as barrier. clinician will provide follow-up as requested by patient. Psychosocial stressors 05/18/2025 Assessment & Plan (05/22/2025 9:21 AM EDT): During IBH Consult Diaz presenting with depressed mood, hopelessness, irritable mood, isolating, change in appetite or weight unintentional weight gain, worthlessness, inappropriate/excessive guilt , difficulty concentrating and difficulty controlling worry and anxiety/worry associated to easily fatigued , difficulty concentrating and/or mind going blank , and irritability; for a period of 0-6 mo, for most or all symptoms in the context of family issues, marriage, and recent move. Pt is going through different stressors (personal and cultural). Pt and her family moved from [facility]. The lack of family/social support is identified as barrier. clinician will provide follow-up as requested by patient. Femoroacetabular impingement of right hip 2024 Severe obesity (BMI >= 40) (CMS/HCC) 04/18/2025 Menstrual cramps 02/27/2025 Encounters * This document contains information received from the source organization and may not represent a complete record from that organization. Date Type Department Care Team Description 06/30/2025 Travel 06/28/2025 9:15 AM EDT Office Visit [facility] [address] [place] [phone] Esther Adam MD ASCUS with positive high risk HPV cervical (Primary Dx); Atypical squamous cells of undetermined significance on cytologic smear of cervix (ASC-US); Dietary counseling; Exercise counseling; Annual physical exam; Encounter for vaccination; Encounter for immunization; Health care maintenance 06/28/2025 Travel 06/27/2025 Telephone [facility] [address] [place] [phone] Esther Adam MD chart prep 06/23/[address] 06/21/2025 Patient Outreach [address] [address] Holland Che MD Pre-visit Planning (SDOH screening negative and Tobacco screening negative) 05/22/2025 11:00 AM EDT Office Visit [facility] [address] [address] Suad Kumar MD Abscess (Primary Dx) 05/22/2025 Travel 05/16/2025 Orders Only [address] [address] Adarsh Burns CNM ASCUS with positive high risk HPV cervical (Primary Dx) 05/15/[address] [address] Esther Adam MD Referral 05/04/2025 Orders Only [address] [address] Adarsh Burns CNM ASCUS with positive high risk HPV cervical (Primary Dx) 05/04/2025 Results Follow-Up [address] [address] Adarsh Burns CNM Pap Smear, STI testing add on (NG, CT, Trich), Hepatitis B Core Antibody, Total, Additional followed-up results: 5 05/01/2025 Results Follow-Up [address] [address] Adarsh Burns CNM Iron And Total Iron Binding Capacity, Ferritin, Hepatic Function Panel 04/27/2025 10:30 AM EDT Procedure Visit [address] [address] Adarsh Burns CNM Cervical cancer screening (Primary Dx); Encntr screen for infections w sexl mode of transmiss; Checking subdermal contraceptive 04/27/2025 Travel 04/26/[address] [address] Adarsh Burns CNM chart prep 04/21/2025 Orders Only [facility] [address] [place], [place] [phone] Tracy Franco MD Anemia, unspecified type (Primary Dx) 04/20/2025 Telephone [facility] [address] [phone] Tracy Franco MD 04/19/2025 Results Follow-Up [facility] [address] [place] [address] Tracy Franco MD CBC auto differential, Basic Metabolic Panel, XR Hip 2 or 3 Views Right, ROCK Screen,IFA, with Reflex to Titer and Pattern 04/18/2025 11:00 AM EDT Office Visit [facility] [address] [place] [address] Tracy Franco MD Acute right hip pain (Primary Dx); Severe obesity (BMI >= 40) (CMS/HCC); Femoroacetabular impingement of right hip 04/18/2025 Travel 04/12/2025 Telephone [facility] [address], [place] [phone] Erich Oakes CNP Procedure (Pt requesting to speak Erich daigle did the procedure. ) 04/07/2025 Telephone [facility] [address], [place] [phone] Adarsh Burns CNM Chart Prep from Last 3 Months Immunizations Immunization Administration Dates Next Due HepB-CpG 06/28/2025 Influenza, seasonal, injectable, preservative fr ee 06/28/2025 Pfizer Covid-19 Vaccine 12+ 06/28/2025 Family History Medical History Relation Name Comments DM2 Father HTN Father Relation Name Status Comments Father Social History Tobacco Use Types Packs/Day Years [...] 20 06/28/2025 9:27 AM EDT Oxygen Saturation 99% 05/22/2025 10:51 AM EDT Inhaled Oxygen Concentration - - Weight 101 kg (223 lb) 06/28/2025 9:27 AM EDT Height 157.5 cm (5' 2 ) 06/28/2025 9:27 AM EDT Body Mass Index 40.79 06/28/2025 9:27 AM EDT Plan of Treatment Upcoming Encounters Date Type Department Care Team (Late st Contact Info) Description 07/31/2025 9:30 AM EST Immunization [facility] [address] [place] [address] Health Maintenance Due Date Last Done Comments Lipid Panel 1994 HPV Vaccines (1 - 3-dose series) 2009 DTaP/Tdap/Td Vaccines (1 - Tdap) 2013 Colposcopy 04/28/2025 Hepatitis B Vaccines (2 of 2 - CpG 2-dose series) 07/26/2025 06/28/2025 Depression Monitoring 12/28/2025 06/29/2025 , 06/29/2025 Alcohol/Substance Use Screening 03/08/2026 03/08/2025 Family Planning (PISQ) 04/27/2026 04/27/2025 SDOH Screening 06/21/2026 06/21/2025 Disability Screening 06/28/2026 06/28/2025 Tobacco Screening 06/28/2026 06/28/2025 Pap Smear 04/27/2028 04/27/2025 Cervical Cancer Screening 04/27/2030 HPV/Cotest 04/27/2030 04/27/2025 Zoster Vaccines (1 of 2) 2044 RSV Patients and Patients Aged 60 years or older (1 - 1-dose 75+ series) 2069 HIV Screening Completed 04/28/2025 Hepatitis C Screening Completed 04/28/2025 COVID-19 Vaccine Completed 06/28/2025 Influenza Vaccine Completed 06/28/2025 HIB Vaccines Aged Out No longer eligi [...] Procedure Name Priority Date/Time Associated Diagnosis Comments SYPHILIS SCREEN Routine 04/28/2025 1:45 PM EDT Encntr screen for infections w sexl mode of transmiss HIV 1/2 ANTIGEN/ANTIBODY, FOURTH GENERATION W/RFL Routine 04/28/2025 1:45 PM EDT Encntr screen for infections w sexl mode of transmiss HEPATITIS C AB W/REFL TO HCV RNA, QN, PCR Routine 04/28/2025 1:45 PM EDT Encntr screen for infections w sexl mode of transmiss HEPATITIS B SURFACE ANTIGEN, EIA Routine 04/28/2025 1:45 PM EDT Encntr screen for infections w sexl mode of transmiss HEPATITIS B SURFACE ANTIBODY, QUALITATIVE Routine 04/28/2025 1:45 PM EDT Encntr screen for infections w sexl mode of transmiss HEPATITIS B CORE AB TOTAL Routine 04/28/2025 1:45 PM EDT Encntr screen for infections w sexl mode of transmiss HEPATIC FUNCTION PANEL Routine 04/28/2025 1:45 PM EDT Anemia, unspecified type FERRITIN Routine 04/28/2025 1:45 PM EDT Anemia, unspecified type IRON AND TOTAL IRON BINDING CAPACITY Routine 04/28/2025 1:45 PM EDT Anemia, unspecified type CHLAMYDIA/N. GONORRHOEAE AND T. VAGINALIS RNA, QUAL,TMA Routine 04/27/2025 11:07 AM EDT Encntr screen for infections w sexl mode of transmiss PAP SMEAR Routine 04/27/2025 11:07 AM EDT Cervical cancer screening HPV DNA, LOW/HIGH RISK Routine 04/27/2025 11:07 AM EDT Anemia, unspecified type BASIC METABOLIC PANEL Routine 04/18/2025 1:20 PM EDT Acute right hip pain CBC WITH AUTO DIFFERENTIAL Routine 04/18/2025 1:20 PM EDT Acute right hip pain ROCK SCREEN, IFA, W/REFL TITER AND PATTERN Routine 04/18/2025 1:20 PM EDT Acute right hip pain XR HIP 2 OR 3 VIEWS RIGHT Routine 04/18/2025 11:35 AM EDT Acute right hip pain from Last 3 Months Results * Syphilis Screen (04/28/2025 1:45 PM EDT) Pathologist [facility] Syphilis Screen Nonreactive Nonreactive [facility] Blood Venous blood specimen / Unknown 04/28/2025 1:45 PM EDT 04/28/2025 4:31 PM EDT [facility] LAB BLOOD ORDERABLES Nisha l Result Performing Organization Address [facility]/ZIP Co de Phone Number [facility] [address] [place] [phone] * Hepatitis C Antibody with Reflex to HCV, RNA, Quantitative, Real-Time PCR (04/28/2025 1:45 PM EDT) [facility] Hepatitis C Antibody Nonreactive Nonreactive [facility] Comment:Antibodies to HCV no t detected; does not exclude early acuteHCV infection. Blood Venous blood specimen / Unknown 04/28/2025 1:45 PM EDT 04/28/2025 4:31 PM EDT [facility] LAB BLOOD ORDERABLES Nisha l Result Performing Organization Address [facility]/ZIP Co de Phone Number [facility] [address] [place] [phone] * Iron And Total Iron Binding Capacity (04/28/2025 1:45 PM EDT) Pathologist [facility] Iron 36 30 - 160 mcg/dL [facility] Total Iron Binding Capacity 239 228 - 428 mcg/dL [facility] Percent Iron Saturation 15 15 - 50 % [facility] Unsaturated Iron Binding 203 ug/dL [facility] Blood Venous blood specimen / Unknown 04/28/2025 1:45 PM EDT 04/28/2025 4:31 PM EDT Tracy Franco MD LAB BLOOD ORDERABLES Final Re sult Performing Organization Address [facility]/ZIP Co de Phone Number [facility] [address] [place] [phone] * Hepatitis B surface antigen, EIA (04/28/2025 1:45 PM EDT) Hepatitis B Surface Ag Negative Negative [facility] Blood Venous blood specimen / Unknown 04/28/2025 1:45 PM EDT 04/28/2025 4:31 PM EDT Adarsh Burns [facility] LAB BLOOD ORDERABLES Nisha l Result Performing Organization Address [facility] Co de Phone Number [facility] [address] [place] [phone] * Hepatitis B Core Antibody, Total (04/28/2025 1:45 PM EDT) Pathologist [facility] Hepatitis B Core Antibody Nonreactive Nonreactive [facility] Blood Venous blood specimen / Unknown 04/28/2025 1:45 PM EDT 04/28/2025 4:[address] [facility] LAB BLOOD ORDERABLES Nisha l Result Performing Organization Address [facility] Co de Phone Number [facility] [address] [place] [phone] * HIV-1/2 Antigen and Antibodies, Fourth Generation, with Reflexes (04/28/2025 1:45 PM EDT) HIV AB/AG Nonreactive Nonreactive [facility] Comment:HIV-1 p24 Ag and/or HIV-1/HIV-2 Ab not detected.A test result that is nonreactive does not exclude thepossibility of exposure to or infection with HIV-1 and/orHIV-2. Nonreactive results in this assay for individualswith prior exposure to HIV-1 and/or HIV-2 may be due toantigen and antibody levels that are below the limit ofdetection of this assay.The [employer] HIV Ag/Ab Combo assay result andsupplemental assay results should be interpreted inconjunction with the patient's clinical presentation,history and other laboratory results. If the results areinconsistent with clinical evidence, additional testing issuggested to confirm the result. Blood Venous blood specimen / Unknown 04/28/2025 1:45 PM EDT 04/28/2025 4:31 PM EDT [facility] LAB BLOOD ORDERABLES Nisha l Result Performing Organization Address City/[facility]/ZIP Co de Phone Number [facility] [address] [place] [phone] * Hepatitis B Surface Antibody, Qualitative (04/28/2025 1:45 PM EDT) ~Hepatitis B Surface Antibody NONREACTIVE Nonreactive [facility] Comment:Nonreactive: < 8.00 mIU/mL Blood Venous blood specimen / Unknown 04/28/2025 1:45 PM EDT 04/28/2025 4:31 PM EDT [facility] LAB BLOOD ORDERABLES Nisha l Result Performing Organization Address [facility]/ZIP Co de Phone Number [facility] [address] [place] [phone] * (ABNORMAL) Ferritin (04/28/2025 1:45 PM EDT) Ferritin 361(H) 10 - 122 ng/mL [facility] Blood Venous blood specimen / Unknown 04/28/2025 1:45 PM EDT 04/28/2025 4:31 PM EDT us Tracy Franco MD LAB BLOOD ORDERABLES Final Re sult Performing Organization Address [facility] Co de Phone Number [facility] [address] [place] [phone] * (ABNORMAL) Hepatic Function Panel (04/28/2025 1:45 PM EDT) Bilirubin, Total 0.4 0.0 - 1.0 mg/dL [facility] Bilirubin, Direct 0.2 0.0 - 0.5 mg/dL [facility] Aspartate Amino Transferase 36(H) 5 - 31 U/L [facility] Alanine Aminotransferase 56(H) 0 - 31 U/L [facility] Total Protein 8.0 6.5 - 8.0 g/dL [facility] Albumin Level 4.6 3.5 - 5.0 g/dL [facility] Alkaline Phosphatase 112 39 - 117 U/L [facility] Blood Venous blood specimen / Unknown 04/28/2025 1:45 PM EDT 04/28/2025 4:31 PM EDT us Tracy Franco MD LAB BLOOD ORDERABLES Final Re sult Performing Organization Address [facility] Co de Phone Number [facility] [address] [place] [phone] * STI testing add on (NG, CT, Trich) (04/27/2025 11:07 AM EDT) Trichomonas (NAAT) NOT DETECTED NOT DETECTED [facility] Comment:The analytical perfo rmance characteristics of thisassay have been determined by [employer]. Themodifications have not been cleared or approved bythe FDA. This assay has been validated pursuant to theCLIA regulations and is used for clinical purposes.For additional information, please refer tohttp://[email or web address].Flipxing.com/faq/Trichomonastma(This link is being provided for information/educational purposes only.)THIS TEST WAS PERFORMED AT:[facility] [employer] [place] [phone] SU MD CTNG Ref Lab NOT DETECTED NOT DETECTED [facility] NG Ref Lab NOT DETECTED NOT DETECTED [facility] ThinPrep vial Cervix uteri structure / Unknown 04/27/2025 11:07 AM EDT 04/28/2025 7:40 AM EDT Narrative [facility] - 05/01/2025 11:03 PM EDT Collection Date: [id number] by: MOHINDER Min: Cervix Adarsh JEAN LAB CYTOLOGY ORDERABLES F inal Result [facility] [address] [place] [phone] * (ABNORMAL) HPV DNA, Low/High Risk (04/27/2025 11:07 AM EDT) HPV High Risk Positive(A) Negative [facility] HPV Genotype 16 Negative Negative [facility] HPV Genotype 18 Negative Negative [facility] Comment:HPV testing performe d at [facility] (CLIA#[id number]), [address] [place] [address].Testing for HPV was performed using the Lena [employer]ELLE 6800system. The presence of HPV in the female genital tract isassociated with a number of diseases, including cervicalcarcinoma. The HPV DNA high risk pool tests for HPV 31, 33,35, 39, 45, 51, 52, 56, 58, 59, 66 and 68. The testing forHPV 16 and 18 genotypes has also been performed. A positiveresult indicates detection of nucleic acid sequences fromone or more subtypes, whereas a negative result indicatessuch sequences were not detected. 04/27/2025 11:0 7 AM EDT 04/28/2025 7:40 AM EDT Adarsh Burns CNM LAB BLOOD ORDERABLES Nisha neri Result [facility] [address] [place] [phone] * Pap Smear (04/27/2025 11:07 AM EDT) Swab Cervix uteri structure / Unknown 04/27/2025 11:07 AM EDT 04/28/2025 7:40 AM EDT Narrative [facility] - 05/04/2025 1:50 PM EDT ----- ------- Name: Diaz Rivas Age/Sex: 29/F : 1995 Unit#: [id number] Attend Dr: ADARSH BURNS CNM Re04/27/25 Status: DAVE REF Location: HOHHCLNP Disch: ----- ------- SPEC : [id number] RECD: 04/28/25 STATUS: EULALIO AMADO NUM: [id number] DARNELL: 04/27/25-[address]: ADARSH BURNS CNM ENTERED: 04/28/25-394 SP TYPE: Pap Smr OTHR DR: ORDERED: Pap Smear, PAP path review Interpretation General Category: Epithelial cell abnormality. Adequacy: Endocervical component present. Interpretation: Atypical squamous cells of undetermined significance. Hyperkeratosis Coccobacilli consistent with shift in vaginal ebony. HPV High Risk: Positive HPV Genotyping 16: Negative HPV Genotyping 18: Negative Clinical Information LMP: Unknown date Previous PAP test: Unknown date/findings Other history: Cervical cancer screening Material Received ThinPrep-Cervical PAP Disclaimer As of July 20, 2024, the technical services to include automated prescreening performed by the ThinPrep Imaging System, PAP screening and HPV testing will be performed at [facility] (CLIA #[id number]), [address] [place] [address]. Testing for HPV was performed using the Lena DANIELLE 6800 system. The presence of HPV in the female genital tract is associated with a number of diseases, including cervical carcinoma. The HPV DNA high risk pool tests for HPV 31, 33, 35, 39, 45, 51, 52, 56, 58, 59, 66 and 68. The testing for HPV 16 and 18 genotypes has also been performed. A positive result indicates detection of nucleic acid sequences from one or more subtypes, whereas a negative result indicates such sequences were not detected. All professional services are performed by [facility] ([address] [place] [address]; ; CLIA #[id number]). The PAP Test is a screening procedure with the inherent possibility of both false negative and false positive results. Results should be interpreted in the context of historic and current clinical findings. Reliability of the PAP Test is enhanced by performing the test on a regular repetitive basis. CONTINUED ON NEXT PAGE ----- ------- Name: Diaz Rivas Age/Sex: 29/F : 1995 Unit#: [id number] Attend Dr: ADARSH BURNS CNM Re04/27/25 Status: DEP REF Location: [facility]OS[facility]CLNP Disch: ----- ------- SPEC : [id number] RECD: 04/28/25 STATUS: EULALIO AMADO NUM: [id number] DARNELL: 04/27/25-[address] [facility] [address]: ADARSH BURNS CNM ENTERED: 04/28/25 SP TYPE: Pap Smr JESSICA DR: ORDERED: Pap Smear, PAP path review ----- ------- Signed (signature on file) Joann Woodard 05/04/25 1350 ----- ------- END OF REPORT Adarsh Burns CNM LAB CYTOLOGY ORDERABLES F inal Result [facility] [address] [place] [phone] * (ABNORMAL) CBC auto differential (04/18/2025 1:20 PM EDT) White Blood Count 8.0 4.8 - 10.8 X10*3/uL [facility] Red Blood Count 4.39 4.20 - 5.50 X10*6/uL [facility] Hemoglobin 11.7(L) 12.0 - 16.0 g/dl [facility] Hematocrit 35.6(L) 37.0 - 47.0 % [facility] Mean Corpuscular Volume 81.1 80.0 - 98.0 fL [facility] Mean Corpuscular Hemoglobin 26.7(L) 27.0 - 33.0 pg [facility] Mean Corpuscular HGB Conc 32.9 31.0 - 35.0 g/dl [facility] Red Cell Distribution Width 14.8 11.0 - 16.0 % [facility] Platelet Count 366 160 - 400 X10*3/uL [facility] Mean Platelet Volume 10.0 9.4 - 12.3 fL [facility] Neutrophils Percent Auto 56.5 45 - 73 % [facility] Imm Gran Pct Auto 0.3 0.0 - 0.4 % [facility] Lymphocytes Percent Auto 28.5 20 - 40 % [facility] Monocytes Percent Auto 12.5(H) 2 - 11 % [facility] Eosinophils Percent Auto 1.4 0 - 4 % [facility] Basophils Percent Auto 0.8 0 - 2 % [facility] NRBC Pct Auto 0.0 0.0 - 0.2 /100WBC [facility] Neutrophils Absolute Auto 4.5 2.0 - 8.3 x10*3/uL [facility] Imm Gran Abs Auto 0.02 0.00 - 0.03 X10*3/uL [facility] Lymphocytes Absolute Auto 2.3 1.2 - 4.9 X10*3/uL [facility] Monocytes Absolute Auto 1.0 0.1 - 1.2 X10*3/uL [facility] Eosinophils Absolute Auto 0.1 0.0 - 0.4 X10*3/uL [facility] Basophils Absolute Auto 0.1 0.0 - 0.2 X10*3/uL [facility] NRBC Abs Auto 0.000 0.0 - 0.012 X10*3/uL [facility] Blood Venous blood specimen / Unknown 04/18/2025 1:20 PM EDT 04/18/2025 4:08 PM EDT us Tracy Franco MD LAB BLOOD ORDERABLES Final Re sult [facility] [address] [place] [phone] * ROCK Screen,IFA, with Reflex to Titer and Pattern (04/18/2025 1:20 PM EDT) Anti Nuclear Antibody Screen NEGATIVE NEGATIVE [facility] Comment:ROCK IFA is a first [...] clinicallysuspected inflammatory myopathies.AC-0: NegativeInternational Consensus on ROCK Patterns(https://doi.org/10.1515/bhaj-1654-8829)For additional information, please refer tohttp://education.Review Trackers.Flipxing.com/faq/YHO475(This link is being provided for informational/educational purposes only.)THIS TEST WAS PERFORMED AT:[facility] [employer] [place] [phone] SU MD ROCK Titer TNP [facility] ROCK Pattern TNP [facility] ROCK TITER 2 (REF LAB) TNP [facility]OCK [facility] 2 [facility] 3 [facility] PATTERN 3 [facility] Blood Venous blood specimen / Unknown 04/18/2025 1:20 PM EDT 04/18/2025 4:08 PM EDT us Tracy Franco MD LAB BLOOD ORDERABLES Final Re sult Performing Organization Address [facility] Co de Phone Number [facility] [address] [place] [phone] * (ABNORMAL) Basic Metabolic Panel (04/18/2025 1:20 PM EDT) Sodium 138 135 - 145 mmol/L [facility] Potassium 4.2 3.3 - 5.1 mmol/L [facility] Chloride 108 96 - 108 mmol/L [facility] Carbon Dioxide 24 22 - 29 mmol/L [facility] Anion Gap 10(L) 12 - 20 [facility] Urea Nitrogen (BUN) 15 9 - 16 mg/dL [facility] Creatinine, Serum 0.69 0.5 - 1.4 mg/dL [facility] Estimated Glomerular Filt Rate >60 [facility] Comment:Chronic Kidney Disea se: Estimated GFR < 60 mL/min/[id number] Kidney Disease: Estimated GFR < 15 mL/min/1.73m2 Glucose 72 60 - 115 mg/dL [facility] Calcium 8.9 8.4 - 10.2 mg/dL [facility] Blood Venous blood specimen / Unknown 04/18/2025 1:20 PM EDT 04/18/2025 4:08 PM EDT us Tracy Franco MD LAB BLOOD ORDERABLES Final Re sult Performing Organization Address City/[facility]/ZIP Co de Phone Number [facility] [address] [place] [address] [phone] * XR Hip 2 or 3 Views Right (04/18/2025 11:35 AM EDT) Anatomical Region Laterality Modality Lower Extremities, Hip Right Radiograp hic Imaging 04/18/2025 11:3 5 AM EDT Narrative 04/18/2025 12:42 PM EDT [address] [address] XRay Report Signed Patient: Diaz Rivas MR#: [id number] : 1995 Acct:[id number] Age/Sex: 29 / F ADM Date: 04/18/25 [facility]: Tracy Franco MD Ordering Physician: Tracy Franco MD Date of Service: 04/18/25 Procedure(s): XR hip RT min 2V Accession Number(s): [id number] cc: Tracy Franco MD EXAMINATION: XR HIP, [...] Dany Ortega MD 04/18/2025 12:40 PM EDT Dictated By: Dany Ortega MD Signed By: <Electronically signed by Dany Ortega MD in OV> 04/18/25 1240 DD/ 1135 TD/TT: 04/18/25 1200 Safety Spec: Procedure Note Donotuseinterpreter, Image - 04/18/[address] [address] XRay Report Signed Patient: Diaz RivaseMR#: [id number] : 1995Acct:[id number] Age/Sex: 29 / FADM Date: 04/18/25 Loc: HO.CX Attending Dr: Tracy Franco MD Ordering Physician: Tracy Franco MD Date of Service: 04/18/25 Procedure(s): XR hip RT min 2V Accession Number(s): [id number] cc: Tracy Franco MD EXAMINATION: XR HIP, [...] 04/18/25 1240 DD/ 1135 TD/TT: 04/18/25 1200 Safety Spec: Tracy Franco MD IMG XR PROCEDURES Final Resul t from Last 3 Months [facility] Care Teams Chief Of Safety And Protection Relationship Specialty Start Date End Date Esther Adam MD [address] [place] [phone] PCP - General Internal Medicine 06/28/25
--- OUTSIDE RECORDS SUMMARY | 2025-06-30 09:06 | XMS_ITS | Encounter Summary ---
Author Organization [employer] Address [address] [place] [address] Care Team Providers Care Audiology Assistant Name Role Phone Esther Adam MD Primary Care Pro vider Encounter Details Date Type Department Care Team (Latest Contact Info) Description 06/28/2025 Travel Social History Tobacco Use Types Packs/Day [...] PM EDT documented as of this encounter Functional Status * Over the past 2 weeks, how often have you been bothered by any of the following problems? Question Answer Date of Assessment Author Patient Health Questionnaire -2 Score 4 06/28/2025 5:36 PM EDT Winter De La Rosa ctoria * Little interest or pleasure in doing things Answer Date of Assessment Author More than half the days 06/28/2025 5:36 PM EDT Marisol Mccallum * Feeling down, depressed, or hopeless Answer Date of Assessment Author More than half the days 06/28/2025 5:36 PM EDT Marisol Mccallum * Trouble falling or staying asleep, or sleeping too much Answer Date of Assessment Author Several days 06/28/2025 5:36 PM EDT Marisol Warner * Feeling tired or having little energy Answer Date of Assessment Author Nearly every day 06/28/2025 5:36 PM EDT Marisol Serna Ba * Poor appetite or overeating Answer Date of Assessment Author Not at all 06/28/2025 5:36 PM EDT Marisol Warner * Feeling bad about yourself - or that you are a failure or have let yourself or your family down Answer Date of Assessment Author More than half the days 06/28/2025 5:36 PM EDT Marisol Mccallum * Trouble concentrating on things, such as reading the newspaper or watching television Answer Date of Assessment Author More than half the days 06/28/2025 5:36 PM EDT Marisol Mccallum * Moving or speaking so slowly that other people could have noticed? Or the opposite - being so fidgety or restless that you have been moving around a lot more than usual. Answer Date of Assessment Author Not at all 06/28/2025 5:36 PM EDT Marisol Warner * Thoughts that you would be better off or hurting yourself in some way Answer Date of Assessment Author Not at all 06/28/2025 5:36 PM EDT Marisol Warner * Patient Health Questionnaire-9 Score Answer Date of Assessment Author 12 06/28/2025 5:36 PM EDT Marisol Warner * How difficult have these problems made it for you to do your work, take care of things at home, or get along with other people? Answer Date of Assessment Author Very difficult 06/28/2025 5:36 PM EDT Marisol Warner documented as of this encounter Plan of Treatment Upcoming Encounters Date Type Department Care Team (Late st Contact Info) Description 07/31/2025 9:30 AM EST Immunization [facility] [address] [place] [phone] documented as of this encounter Visit Diagnoses Not on filedocumented in this encounter Additional Health Concerns Assessment Noted Time PHQ-9 Depression Total Score: 12 025 5:36 PM EDT documented as of this encounter Care Teams Audiology Assistant Relationship Specialty Start Date End Date Esther Adam MD [address] [place] [phone] PCP - General Internal Medicine 06/28/25 documented as of this encounter
== END 2025-06-30 08:44 | disposition home or self-care (01) ==
LOC: HO.HOSX 08:43
PROVIDERS: Visit Provider Physician Assistant
DX: Z13.89 Encounter for screening for other disorder (principal)

== ENCOUNTER 2025-09-25 10:49 | Outpatient (REF) | payer MEDICAID, SELFPAY ==
--- OUTSIDE RECORDS SUMMARY | 2025-09-25 12:27 | XMS_ITS | Clinical Summary ---
Author Organization [employer] Address [address] [facility] [address]t [place] [address] Care Team Providers Care Supervisor Loading Name Role Phone Esther Adam MD Primary Care Pro vider Allergies No known active allergies Medications * This document contains information received from the source organization and may not represent a complete record from that organization. etonogestrel-eluti ng (Nexplanon) 68 mg contraceptive implant [...] cultural). Pt and her family moved from [facility]. The lack of family/social support is identified [...] cultural). Pt and her family moved from [facility]. The lack of family/social support is identified as barrier. clinician will provide follow-up as requested by patient. Femoroacetabular impingement of right hip 2024 Severe obesity (BMI >= 40) (CMS/HCC) 04/18/2025 Menstrual cramps 02/27/2025 Encounters * This document contains information received from the source organization and may not represent a complete record from that organization. Date Type Department Care Team Description 09/15/2025 Patient Outreach [facility] [address] [place] [phone] Esther Adam MD Pre-visit Planning (SDOH screening was completed on 06/21/2025) 08/04/2025 2:00 PM EST Clinical Support [facility] DIABETES/NUTRITION [address] [place] [phone] Severe obesity (CMS/HCC) (HCC) (Primary Dx) 08/04/2025 Travel 07/31/[address] [phone] Esther Adam MD No Show 07/24/[address] [phone] Esther Adam MD Referral (Pt requesting to know status of referral pt wants to know where she will go to Gynecology. Pt missed appointment with henry on 06/27/2025. Call pt to the number in the chart [phone] . She was told if she didn't hear nothing about the referral to come back to the team and ask . ) 07/03/2025 1:00 PM EDT Clinical Support [facility] DIABETES/NUTRITION [address] [place] [phone] Severe obesity (CMS/HCC) (HCC) (Primary Dx) 07/03/2025 Travel 06/30/2025 9:00 AM EDT Nutrition [facility] DIABETES/NUTRITION [address] [place] [address] Severe obesity (BMI >= 40) (CMS/HCC) (HCC) 06/30/2025 Travel 06/28/2025 9:15 AM EDT Office Visit [facility] [address] [place] [address] Esther Adam MD ASCUS with positive high risk HPV cervical (Primary Dx); Atypical squamous cells of undetermined significance on cytologic smear of cervix (ASC-US); Dietary counseling; Exercise counseling; Annual physical exam; Encounter for vaccination; Encounter for immunization; Health care maintenance 06/28/2025 Travel 06/27/2025 Telephone [facility] [address] [place] [phone] Esther Adam MD chart prep from Last 3 Months Immunizations Immunization Administration [...] EDT Inhaled Oxygen Concentration - - Weight 100 kg (221 lb) 08/09/2025 2:18 PM EST Height 157.5 cm (5' 2 ) 08/09/2025 2:18 PM EST Body Mass Index 40.42 08/09/2025 2:18 PM EST Plan of Treatment Upcoming Encounters Date Type Department Care Team (Late st Contact Info) Description 09/27/2025 9:45 AM EST Office Visit [facility] [address] [place] [phone] Esther Adam MD [address] [place] [address] 10/03/2025 2:00 PM EST Clinical Support [facility] DIABETES/NUTRITION [address] [place], [place] [phone] [address]cretia Z[address] [place], [place] [phone] Health Maintenance Due Date Last Done Comments [...] Procedure Name Priority Date/Time Associated Diagnosis Comments HEPATITIS C AB W/REFL TO HCV RNA, QN, PCR Routine 04/28/2025 1:45 PM EDT Encntr screen for infections w sexl mode of transmiss HIV 1/2 ANTIGEN/ANTIBODY, FOURTH GENERATION W/RFL Routine 04/28/2025 1:45 PM EDT Encntr screen for infections w sexl mode of transmiss HPV DNA, LOW/HIGH RISK Routine 04/27/2025 11:07 AM EDT Anemia, unspecified type PAP SMEAR Routine 04/27/2025 11:07 AM EDT Cervical cancer screening from Last 3 Months or Most Recently Relevant to Health Maintenance Results * Hepatitis C Antibody with Reflex to HCV, RNA, Quantitative, Real-Time PCR (04/28/2025 1:45 PM EDT) Hepatitis C Antibody Nonreactive Nonreactive [facility] Comment:Antibodies to HCV no t detected; does not exclude early acuteHCV infection. Blood Venous blood specimen / Unknown 04/28/2025 1:45 PM EDT 04/28/2025 4:31 PM EDT us Montserrat Burns [facility] BLOOD ORDERABLES Nisha l Result [facility] [address] [place] [address] [phone] * HIV-1/2 Antigen and Antibodies, Fourth Generation, with Reflexes (04/28/2025 1:45 PM EDT) HIV AB/AG Nonreactive Nonreactive [facility] Comment:HIV-1 p24 Ag and/or HIV-1/HIV-2 Ab not detected.A test result that is nonreactive does not exclude thepossibility of exposure to or infection with HIV-1 and/orHIV-2. Nonreactive results in this assay for individualswith prior exposure to HIV-1 and/or HIV-2 may be due toantigen and antibody levels that are below the limit ofdetection of this assay.The [employer] HIV Ag/Ab Combo assay result andsupplemental assay results should be interpreted inconjunction with the patient's clinical presentation,history and other laboratory results. If the results areinconsistent with clinical evidence, additional testing issuggested to confirm the result. Blood Venous blood specimen / Unknown 04/28/2025 1:45 PM EDT 04/28/2025 4:31 PM EDT us Montserrat Burns [facility] BLOOD ORDERABLES Nisha neri Result [facility] [address] [place] [phone] * (ABNORMAL) HPV DNA, Low/High Risk (04/27/2025 11:07 AM EDT) HPV High Risk Positive(A) Negative [facility] HPV Genotype 16 Negative Negative [facility] HPV Genotype 18 Negative Negative [facility] Comment:HPV testing performe d at [facility] (CLIA#[id number]), [address] [place] [address].Testing for HPV was performed using the Lena [...] 7 AM EDT 04/28/2025 7:40 AM EDT us Montserrat Burns CNM LAB BLOOD ORDERABLES Nisha neri Result [facility] [address] [place] [phone] * Pap Smear (04/27/2025 11:07 AM EDT) Swab Cervix uteri structure / Unknown 04/27/2025 11:07 AM EDT 04/28/2025 7:40 AM EDT Narrative [facility] - 05/04/2025 1:50 PM EDT ----- ------- Name: Diaz Rivas Age/Sex: 29/F : 1995 Unit#: [id number] Attend Dr: MONTSERRAT BURNS CNM Re04/27/25 Status: DEP REF Location: HO.HHCLNP Disch: ----- ------- SPEC : [id number] RECD: 04/28/25 STATUS: EULALIO AMADO NUM: [id number] DARNELL: 04/27/25-[address]: MONTSERRAT BURNS CNM ENTERED: 04/28/25 SP TYPE: Pap Smr OTHR DR: ORDERED: [...] and HPV testing will be performed at [facility] (CLIA #[id number]), [address] [place] [address]. Testing for HPV was performed using the [employer] system. The presence of HPV in the [...] detected. All professional services are performed by [facility] ([address] [place] [address], [place] [address]; ; CLIA #[id number]). The PAP Test is a screening procedure with the inherent possibility of both false negative and false positive results. Results should be interpreted in the context of historic and current clinical findings. Reliability of the PAP Test is enhanced by performing the test on a regular repetitive basis. CONTINUED ON NEXT PAGE ----- ------- Name: Diaz Rivas Age/Sex: 29/F : 1995 Unit#: [id number] Attend Dr: MONTSERRAT BURNS CNM Re04/27/25 Status: DEP REF Location: [facility] Disch: ----- ------- SPEC : [id number] RECD: 04/28/25 STATUS: EULALIO AMADO NUM: [id number] DARNELL: 04/27/25-[address] [facility] [address]: MONTSERRAT BURNS CNM ENTERED: 04/28/25 SP TYPE: Pap Zaheer LOPEZ DR: ORDERED: Pap Smear, PAP path review ----- ------- Signed (signature on file) Joann Woodard 05/04/25 1350 ----- ------- END OF REPORT Montserrat Burns CNM LAB CYTOLOGY ORDERABLES F inal Result [facility] [address] [place] [phone] from Last 3 Months or Most Recently Relevant to Health Maintenance [facility] Care Teams Supervisor Loading Relationship Specialty Start Date End Date Esther Adam MD [address] [place] [phone] PCP - General Internal Medicine 06/28/25
[2025-09-25 13:52] LABS: MANUAL DIFF FLAG NO
[2025-09-25 13:59] LABS: Hematocrit 38.7 % (37.0-47.0); Hemoglobin 12.5 g/dl (12.0-16.0); Imm Gran Abs Auto 0.02 X10*3/uL (0.00-0.03); Imm Gran Pct Auto 0.4 % (0.0-0.4); Lymphocytes Absolute Auto 1.8 X10*3/uL (1.2-4.9); Mean Corpuscular HGB Conc 32.3 g/dl (31.0-35.0); Mean Corpuscular Hemoglobin 25.9 pg (27.0-33.0); Mean Corpuscular Volume 80.1 fL (80.0-98.0); NRBC Abs Auto 0.000 X10*3/uL (0.0-0.012); NRBC Pct Auto 0.0 /100WBC (0.0-0.2); Platelet Count 323 X10*3/uL (160-400); Red Blood Count 4.83 X10*6/uL (4.20-5.50); White Blood Count 4.7 X10*3/uL (4.8-10.8)
[2025-09-25 14:41] LABS: Alanine Aminotransferase 28 U/L (0-31); Albumin Level 4.4 g/dL (3.5-5.0); Alkaline Phosphatase 79 U/L (39-117); Anion Gap 11 (12-20); Aspartate Amino Transferase 30 U/L (5-31); Blood Urea Nitrogen 6 mg/dL (9-16); Calcium 9.7 mg/dL (8.4-10.2); Carbon Dioxide 23 mmol/L (22-29); Chloride 110 mmol/L (96-108); Cholesterol 141 mg/dL (<200); Estimated Glomerular Filt Rate > 60; HDL Cholesterol 49 mg/dL (>40); Iron 68 mcg/dL (30-160); Percent Iron Saturation 29 % (15-50); Potassium 3.8 mmol/L (3.3-5.1); Sodium 140 mmol/L (135-145); Total Iron Binding Capacity 231 mcg/dL (228-428); Total Protein 7.5 g/dL (6.5-8.0); Triglycerides 43 mg/dL (<150); Unsaturated Iron Binding 163 ug/dL
[2025-09-25 14:44] LABS: Ferritin 159 ng/mL (10-122)
[2025-09-25 15:00] LABS: Folate 10.6 ng/mL (> or = 4.0); Vitamin B12 1149 pg/mL (200-900)
[2025-09-25 16:02] LABS: CT PCR Urine NOT DETECTED (Not Detect.); NG PCR Urine NOT DETECTED (Not Detect.)
[2025-09-26 08:42] LABS: Rubeola IgG (Measles) >300.00 AU/mL
== END 2025-09-25 10:50 | disposition home or self-care (01) ==
LOC: HO.HHCX 10:49
PROVIDERS: PCP Student in an Organized Health Care Education/Training Program; Referring Provider Physician Assistant; Visit Provider Student in an Organized Health Care Education/Training Program
DX: Z00.00 Encounter for general adult medical examination without abnormal findings (principal); Z01.84 Encounter for antibody response examination; Z11.1 Encounter for screening for respiratory tuberculosis; Z20.2 Contact with and (suspected) exposure to infections with a predominantly sexual mode of transmission
CPT/HCPCS: 80053; 80061; 82306; 82607; 82728; 82746; 83036; 83540; 84443; 85025; 86481; 86735; 86762; 86765; 86787; 87491; 87591